=== PATIENT | male | born 1965 | race African-American/Black ===

== ENCOUNTER 2017-02-01 09:57 | Emergency (ER) | payer OTHER ==
--- NOTE | ~2017-02-01 | CR72 ---
[facility]. [facility] A Service of [facility] & [facility] / [facility] RADIOLOGY TEXT RESULTS PATIENT: DUYEN CORCORAN LOCATION: SED : 63 UNIT #: [id number] AGE: [address]: Zaid Ortiz MD SEX: M ORDER DR: [id number] [address] [address] [id number] E MR#: [id number] Acc #: [id number] NAME: DUYEN CORCORAN : 1965 SEX: M STUDY DATE/TIME: 02/01/2017 10:20 UNIT: SED ROOM: STUDY DESCRIPTION: CR Chest Single View Portable Attending Physician: Zaid Ortiz M.D. Ordering Physician: Zaid Ortiz M.D. MEDICAL IMAGING REPORT This report is preliminary unless electronic signature is present. EXAM Portable chest 02/01/2017 1020 hours HISTORY 51-year-old man complaining of chest pains beginning a few months ago happening three to four times every day. History of hypertension. COMPARISON None. FINDINGS Portable upright chest demonstrates mild cardiomegaly with tortuous aorta. Pulmonary vascularity is normal. The lungs are clear and there are no effusions. IMPRESSION Mild cardiomegaly with tortuous aorta. Lungs are clear and there are no effusions. Dictated by... Angelica Hare M.D. THIS IS AN ELECTRONICALLY VERIFIED REPORT Angelica Hare M.D. at 02/01/2017 2:34 PM [email or web address]/paige TD: 02/01/2017 12:40 JOB #: [id number] MEDICAL IMAGING REPORT Page 1 of 1
--- NOTE | ~2017-02-01 | EKG ---
PATIENT: DUYEN CORCORAN UNIT #: [id number] Ventricular Rate: 77 BPM Atrial Rate: 77 BPM P-R Interval: 190 ms QRS Duration: 140 ms Q-T Interval: 420 ms QTC Calculation(Bezet): 475 ms P Duff: 60 degrees Calculated R Duff: -11 degrees Calculated T Duff: 4 degrees Diagnosis Line: Normal sinus rhythm Diagnosis Line: Left ventricular hypertrophy with QRS widening Diagnosis Line: Abnormal ECG Diagnosis Line: No previous ECGs available Diagnosis Line: Confirmed by MARCELLA PRUITT MD ([id number]) on 02/02/2017 Diagnosis Line: 4:30:46 PM INTERPRETING MD: SONAL SHANKS
[~2017-02-01 09:57] MED LIST: BP MED; METFORMIN HCL1000 M1 PO
[2017-02-01] MEDS ORDERED: PRINIVIL10 MG PO (10:10)
[2017-02-01] MEDS ORDERED: GLIMEPIRIDE2 MG (10:10)
[2017-02-01 10:31] LABS: BASOPHIL# 0.1 X10e3 (0-0.3); BASOPHIL% 1.5 % (0-2.5); EOSINOPHIL# 0.1 X10e3 (0-0.7); HEMATOCRIT 37.9 % (38.0-50.0); HEMOGLOBIN 12.8 gm/dL (13.0-16.0); LYMPHOCYTE% 34.7 % (17.0-45.0); MEAN CELL VOLUME 82.7 FL (83-96); MEAN CORPUSCULAR HEMOGLOBIN 27.9 PG (28-34); MEAN CORPUSCULAR HGB CONC 33.7 g/dL (30-36); MEAN PLATELET VOLUME 9.5 FL (6.5-11.5); MONOCYTE# 0.4 X10e3 (0-1.0); NEUTROPHIL% 53.8 % (40-75); PLATELET COUNT 185 X10e3 (140-420); RED BLOOD COUNT 4.59 X10e (3.90-5.60); RED CELL DISTRIBUTION WIDTH 12.7 % (11.0-15.5); WHITE BLOOD COUNT 5.6 X10e3 (4.0-10.5)
[2017-02-01 10:33] LABS: DIFF IND NO
[2017-02-01 10:39] LABS: INR 1.1; PROTHROMBIN TIME (PATIENT) 12.5 SECONDS (9.5-12.4)
[2017-02-01 10:43] LABS: POC - MYOGLOBIN 64.3 ng/mL (0.0-169.0); POC - TROPONIN <0.05 ng/mL (<=0.05)
[2017-02-01 10:46] LABS: PARTIAL THROMBOPLASTIN TIME 33.6 SECONDS (25.6-38.1)
[2017-02-01 10:47] LABS: ALBUMIN SERUM 4.4 g/dL (3.5-5.0); BILIRUBIN, DIRECT 0.1 mg/dL (0.0-0.2); BILIRUBIN,INDIRECT 0.5 mg/dL (0.0-0.9); BILIRUBIN,TOTAL 0.6 mg/dL (0.2-2.0); BUN/CREATININE RATIO 15.55; CALCIUM SERUM 9.3 mg/dL (8.4-10.2); CREATININE SERUM 0.9 mg/dL (0.6-1.4); GLOM FILT RATE Estimated 113.4 mL/min (>60); POTASSIUM 3.9 mmol/L (3.5-5.1); PROTEIN TOTAL SERUM 7.8 g/dL (6.0-8.3)
== END 2017-02-01 12:14 | disposition home or self-care (01) ==
LOC: SED 09:57
PROVIDERS: Emergency Medicine
DX: R07.9 Chest pain, unspecified (principal); I10 Essential (primary) hypertension; Z79.899 Other long term (current) drug therapy
CPT/HCPCS: 36415; 71010; 80048; 80076; 82553; 82947; 83874; 84484; 85025; 85610; 85730; 93005; 99285